=== PATIENT | female | born 1960 | race Caucasian/White ===

== ENCOUNTER 2021-09-05 09:08 | Outpatient (CLI) | payer OTHER, SELFPAY ==
--- NOTE | 2021-09-05 09:15 | CRLHL7_ITS ---
For Patients: As a result of the Century Cures Act, medical imaging exams and procedure reports are released immediately into your electronic medical record. You may view this report before your referring provider. If you have questions, please contact your health care provider. BILATERAL MAMMOGRAM WITH COMPUTER-AIDED DETECTION AND TOMOSYNTHESIS TECHNIQUE: CC and MLO views were obtained. These mammographic images have been obtained using full-field digital technique. These mammographic images were interpreted with the benefit of computer-aided detection. Breast Tomosynthesis was used in this interpretation. COMPARISON FILM: 07/14/2020, 04/02/2019, 09/20/2017. FINDINGS: The breasts are heterogeneously dense, which may obscure small masses IMPRESSION: There is no radiographic evidence for malignancy. ASSESSMENT: BI-RADS Category 2: Benign RECOMMENDATION: Routine screening mammogram in 1 year. A lay language report of this examination will be provided to the patient. Alec Ortega M.D. Diagnostic Radiologist [email or web address] ARLINE/Dictated by: Alec Ortega MD @ 09/05/2021 9:49:00 AM (Electronically Signed)
== END 2021-09-05 09:09 | disposition home or self-care (01) ==
LOC: MAMMO 09:11
PROVIDERS: PCP Family Medicine; Visit Provider Family Medicine
DX: Z12.31 Encounter for screening mammogram for malignant neoplasm of breast (principal); R92.2 Inconclusive mammogram
CPT/HCPCS: 77063; 77067

== ENCOUNTER 2021-11-27 09:46 | Outpatient (CLI) | payer OTHER, SELFPAY ==
[2021-11-27 10:11] LABS: Albumin* 4.1 g/dL (3.3-5.0)
[2021-11-27 10:12] LABS: Chloride* 102 mmol/L (96-114); Potassium* 3.8 mmol/L (3.6-5.1); Sodium* 138 mmol/L (135-149)
[2021-11-27 10:14] LABS: Alkaline Phosphatase* 90 U/L (40-150); Aspartate Amino Transferase* 32 U/L (12-35); Bilirubin Total* 1.8 mg/dL (0.1-1.5); Blood Urea Nitrogen* 19 mg/dL (7-30); Carbon Dioxide* 30 mmol/L (20-32); Cholesterol* 189 mg/dL (90-199); Creatinine* 0.7 mg/dL (0.5-1.5); Estimated Glomerular Filt Rate 98 ml/min; Total Protein* 6.6 g/dL (6.0-8.3)
[2021-11-27 10:15] LABS: Alanine Aminotransferase* 21 U/L (4-35); Calcium* 9.5 mg/dL (8.4-10.6); Glucose* 89 mg/dL (60-115); HDL Cholesterol* 79 mg/dL (>=50); LDL Cholesterol Calculated 102 mg/dL (<100); Triglycerides* 41 mg/dL (40-149)
== END 2021-11-27 09:47 | disposition home or self-care (01) ==
PROVIDERS: PCP Family Medicine; Visit Provider Family Medicine
DX: R74.8 Abnormal levels of other serum enzymes (principal); Z13.6 Encounter for screening for cardiovascular disorders
CPT/HCPCS: 80053; 80061

== ENCOUNTER 2022-01-12 07:54 | Outpatient (CLI) | payer OTHER, SELFPAY ==
[2022-01-12 09:56] LABS: Alkaline Phosphatase* 99 U/L (40-150); Aspartate Amino Transferase* 31 U/L (12-35); Bilirubin Direct* 0.1 mg/dL (0.0-0.5); Total Protein* 6.5 g/dL (6.0-8.3)
[2022-01-12 09:57] LABS: Alanine Aminotransferase* 23 U/L (4-35)
== END 2022-01-12 07:55 | disposition home or self-care (01) ==
LOC: NFLDREF 08:20
PROVIDERS: PCP Family Medicine; Visit Provider Family Medicine
DX: R17 Unspecified jaundice (principal)
CPT/HCPCS: 80076

== ENCOUNTER 2022-12-20 08:11 | Outpatient (CLI) | payer OTHER, SELFPAY | END 2022-12-20 08:12 | disposition home or self-care (01) | LOC: NFLDREF 12-23 22:39 | PROVIDERS: PCP Family Medicine; Referring Provider Family Medicine; Visit Provider Family Medicine | DX: Z01.419 Encounter for gynecological examination (general) (routine) without abnormal findings (principal); E78.5 Hyperlipidemia, unspecified; Z13.9 Encounter for screening, unspecified | CPT/HCPCS: 80053; 80061 ==

== ENCOUNTER 2023-02-12 08:26 | Outpatient (CLI) | payer OTHER, SELFPAY ==
--- NOTE | 2023-02-12 08:45 | CRLHL7_ITS ---
For Patients: As a result of the Cures Act, medical imaging exams and procedure reports are released immediately into your electronic medical record. You may view this report before your referring provider. If you have questions, please contact your health care provider. BILATERAL SCREENING MAMMOGRAM WITH COMPUTER-AIDED DETECTION AND TOMOSYNTHESIS TECHNIQUE: CC and MLO views were obtained. These mammographic images have been obtained using full-field digital technique. These mammographic images were interpreted with the benefit of computer-aided detection. Breast Tomosynthesis was used in this interpretation. COMPARISON FILM: 09/05/21, 07/14/20, 04/02/19. FINDINGS: The breasts are heterogeneously dense, which may obscure small masses IMPRESSION: There is no radiographic evidence for malignancy. ASSESSMENT: BI-RADS Category 2: Benign RECOMMENDATION: Routine screening mammogram in 1 year. A lay language report of this examination will be provided to the patient. MABEL PATE M.D. Diagnostic/Nuclear Medicine Radiologist [email or web address] SHLOMO:sandra Transcribed: 8:29 a.mThomas flores/Dictated by: Mabel Pate MD @ 02/12/2023 9:13:00 AM (Electronically Signed)
== END 2023-02-12 08:27 | disposition home or self-care (01) ==
LOC: MAMMO 08:27
PROVIDERS: PCP Family Medicine; Visit Provider Family Medicine
DX: Z12.31 Encounter for screening mammogram for malignant neoplasm of breast (principal); R92.2 Inconclusive mammogram
CPT/HCPCS: 77063; 77067

== ENCOUNTER 2024-03-31 08:42 | Outpatient (CLI) | payer MEDICARE, BC, SELFPAY ==
--- NOTE | 2024-03-31 10:20 | P.ANES_ITS ---
Anesthesia Charges Start Date/Time Anesthesia Start Date: 03/31/24 Anesthesia Start Time: 09:34 Stop Date/Time Anesthesia Stop Date: 03/31/24 Anesthesia Stop Time: 10:19 Coding CPT Codes CPT Codes: ANES LWR INTST SCR COLSC - 24287 ([id number]) P1 - NORMAL HEALTHY PATIENT, QZ - CHURN DRILLER SVC W/O SECRETARY BOOKKEEPER BY
--- NOTE | 2024-03-31 10:20 | W.ANESCHARGE ---
Anesthesia Charges Start Date/Time Anesthesia Start Date: 03/31/24 Anesthesia Start Time: 09:34 Stop Date/Time Anesthesia Stop Date: 03/31/24 Anesthesia Stop Time: 10:19 Coding CPT Codes CPT Codes: ANES LWR INTST SCR COLSC - 57822 ([id number]) P1 - NORMAL HEALTHY PATIENT, QZ - TELEVISION SCRIPT WRITER SVC W/O PHLEBOTOMIST ASSOCIATE BY
== END 2024-03-31 08:43 | disposition home or self-care (01) ==
LOC: OP CLINIC 08:43
PROVIDERS: PCP Family Medicine; Visit Provider Surgery
DX: Z12.11 Encounter for screening for malignant neoplasm of colon (principal); Z80.0 Family history of malignant neoplasm of digestive organs
CPT/HCPCS: 00812; 45378; J2704

== ENCOUNTER 2024-06-24 14:31 | Outpatient (CLI) | payer MEDICARE, BC, SELFPAY ==
--- NOTE | 2024-06-24 14:40 | CRLHL7_ITS ---
For Patients: As a result of the Century Cures Act, medical imaging exams and procedure reports are released immediately into your electronic medical record. You may view this report before your referring provider. If you have questions, please contact your health care provider. INDICATION: BILATERAL SCREENING MAMMOGRAM, ASYMPOTMATIC 64 Y/O FEMALE COMPARISON: 02/12/23, 09/05/21, 07/14/20 TECHNIQUE: CC and MLO views were obtained. These mammographic images have been obtained using full-field digital technique. These mammographic images were interpreted with the benefit of computer aided detection and tomosynthesis. BREAST COMPOSITION: The breasts are heterogeneously dense, which may obscure small masses. FINDINGS: No suspicious findings. ASSESSMENT: BI-RADS 2 Benign RECOMMENDATION: Annual screening mammogram. A lay language report of this examination will be provided to the patient. Dictated by: Alec Ortega MD @ 07/02/2024 12:50:44 (Electronically Signed)
--- NOTE | 2024-06-24 15:00 | CRLHL7_ITS ---
For Patients: As a result of the Century Cures Act, medical imaging exams and procedure reports are released immediately into your electronic medical record. You may view this report before your referring provider. If you have questions, please contact your health care provider. DXA BONE MINERAL DENSITY STUDY Reason for exam: Asymptomatic menopausal state. Current height (in): 65. Weight (lb): 138. Menopause age: 57. Ethnicity: White. 1. Have you had a previous hip or vertebral fracture? No. 2. Have you had any fractures during your adult life which did not result from significant trauma (e.g., auto accident)? No. 3. Did either of your parents have a hip fracture? No. 4. Do you smoke? No. 5. Have you ever taken Glucocorticoids? No. 6. Do you have rheumatoid arthritis? No. 7. Do you have secondary osteoporosis? No. 8. Do you drink 3 or more alcoholic drinks per day? No. 9. Are you being treated for osteoporosis? No. 10. Have you ever taken any of the following medications: Actonel, Evista, Fosamax, Miacalcin, Reclast, Boniva, Forteo, HRT (i.e. estrogen/hormone therapy), Protelos, Prolia, Vitamin D, Calcium, other ??? please specify. ANSWER: Yes, calcium. 11. Do you have any of the following medical conditions: Anorexia or bulimia, asthma or emphysema, end stage renal disease, hyperparathyroidism, any seizure disorders, cancer, inflammatory bowel diseases, hysterectomy, other ??? please specify. ANSWER: No. 12. What was your maximum height (inches)? 65. 13. Do you perform weight bearing exercise regularly? Yes. 14. Do you regularly consume dairy products? Yes. 15. Do you drink caffeinated beverages? Yes. 16. At what age did your period start? 14. 17. Are you premenopausal? No. 18. How many full term pregnancies have you had? 5. 19. Have you ever missed your period for more than 6 months in a row (not including or menopause)? No. TECHNIQUE: Bone mineral density study was performed using the [employer]. FINDINGS: The results of the study expressed as bone mineral density (BMD) are as follows: Lumbar spine L1 to L4: BMD: 0.948 g/cm2. T-score: -0.9. Z-score: 0.9. Neck Left: BMD: 0.621 g/cm2. T-score: -2.1. Z-score: -0.5. Right: BMD: 0.640 g/cm2. T-score: -1.9 . Z-score: -0.4. Total Left: BMD: 0.787 g/cm2. T-score: -1.3 . Z-score: -0.0. Right: BMD: 0.755 g/cm2. T-score: -1.5. Z-score: -0.3. IMPRESSION: Osteopenia. *Comparison exams done prior to 07/2019 were performed on different unit, [facility]. FRAX 10-year Fracture Risk Major Osteoporotic Fracture: 10 percent Hip Fracture: 1.7 percent Reported Risk Factors: [place] () Neck BMD=0.621, BMI=23.0 Chris Monterroso M.D. Body/Diagnostic Radiologist [email or web address] BRIANP/sp SP/Dictated by: Chris Monterroso MD @ 06/26/2024 12:22:00 PM (Electronically Signed)
== END 2024-06-24 14:32 | disposition home or self-care (01) ==
LOC: MAMMO 14:33
PROVIDERS: PCP Family Medicine; Visit Provider Family Medicine
DX: Z12.31 Encounter for screening mammogram for malignant neoplasm of breast (principal); Z78.0 Asymptomatic menopausal state; M85.89 Other specified disorders of bone density and structure, multiple sites
CPT/HCPCS: 77063; 77067; 77080